=== PATIENT | female | born 1980 | race Caucasian/White ===

== ENCOUNTER 2017-06-19 13:30 | Emergency (ER) | payer BC ==
[2017-06-19] MEDS ORDERED: Sulfamethoxazole/Trimethoprim 800-160 MG Tab PO ONE (13:31)
[2017-06-19 13:37] VITALS: BP 146/63
--- NOTE | 2017-06-19 13:47 | EDM.PDOC ---
ED HPI GENERAL MEDICAL PROBLEM - General Chief Complaint: Abdominal Pain Stated Complaint: abdominal pain Time Seen by Provider: 06/19/17 13:45 Source of Information: Reports: Patient History Limitations: Reports: No Limitations - History of Present Illness INITIAL COMMENTS - FREE TEXT/NARRATIVE: Patient presents with about a 18 hour history of left lower quadrant and suprapubic pain. Patient states initially thought maybe she was getting the flu as she was nauseated as well. No vomiting or diarrhea developed. No fevers. Patient states the pain has persisted and seems worsening. She was at work and couldn't tolerate the pain anymore. She denies burning with urination , no blood. States had a BM yesterday, normal without blood. She has not had any URI symptoms. Last LMP was 2 weeks ago. History of remote ovarian cyst but states this "feels different than that did". Onset: Gradual Duration: Hour(s): Location: Reports: Abdomen Quality: Reports: Burning, Sharp Severity: Moderate Improves with: Reports: None Associated Symptoms: Reports: Nausea/Vomiting. Denies: Cough, cough w sputum, Fever/Chills, Headaches, Loss of Appetite, Shortness of Breath Abdominal Pain Score (Numeric/FACES): 7 - Related Data Allergies Allergy/AdvReac Type Severity Reaction Status Date / Time celecoxib [From Celebrex] Allergy Rash Verified 06/19/17 13:46 Home Meds: Home Meds Metoprolol Succinate [Toprol XL] 12.5 mg PO DAILY 05/26/14 [History] Calcium Carbonate/Vitamin D3 [Calcium 600 + Vit D Tablet] 1 each PO DAILY [History] Levothyroxine Sodium [Synthroid] 125 mcg PO DAILY 05/31/14 [History] Loratadine [Claritin] 10 mg PO DAILY PRN 05/31/14 [History] Naproxen Sodium [Aleve] 220 mg PO BID PRN 05/31/14 [History] diphenhydrAMINE HCl [Allergy Relief] 12.5 mg PO DAILY PRN 05/31/14 [History] Norgestimate-Ethinyl Estradiol [Bath-Linyah 28 Tablet] 1 each PO ASDIRECTED 11/29 [History] Omeprazole Magnesium 40 mg PO DAILY 06/19/17 [History] Rosuvastatin [Crestor] 10 mg PO BEDTIME 06/19/17 [History] Past Medical History Gastrointestinal History: Reports: Diverticulosis, GERD Endocrine/Metabolic History: Reports: Hyperthyroidism Social & Family History - Tobacco Use Smoking Status *Q: Never Smoker Second Hand Smoke Exposure: No - Alcohol Use Days Per Week of Alcohol Use: 1 Number of Drinks Per Day: 1 Total Drinks Per Week: 1 - Recreational Drug Use Recreational Drug Use: No ED ROS GENERAL - Review of Systems Review Of Systems: See Below Constitutional: Denies: Fever, Chills, Malaise, Weakness, Decreased Appetite HEENT: Reports: No Symptoms Respiratory: Denies: Shortness of Breath, Cough Cardiovascular: Denies: Chest Pain, Edema, Lightheadedness Endocrine: Denies: Fatigue GI/Abdominal: Reports: Abdominal Pain, Nausea. Denies: Black Stool, Bloody Stool, Constipation, Diarrhea, Vomiting : Reports: Flank Pain Musculoskeletal: Reports: No Symptoms Skin: Reports: No Symptoms Neurological: Reports: No Symptoms Psychiatric: Reports: No Symptoms ED EXAM, GI/ABD - Physical Exam Exam: See Below Exam Limited By: No Limitations General Appearance: Alert, WD/WN, No Apparent Distress Ears: Normal External Exam, Normal TMs Nose: Normal Inspection, Normal Mucosa Throat/Mouth: Normal Inspection, Normal Oropharynx Head: Normocephalic Neck: Normal Inspection, Supple, Non-Tender Respiratory/Chest: No Respiratory Distress, Lungs Clear, Normal Breath Sounds Cardiovascular: Regular Rate, Rhythm GI/Abdominal Exam: Normal Bowel Sounds, Soft, Tender (diffusely throughout with palpation) Extremities: Normal Inspection, Normal Capillary Refill Neurological: Alert, Oriented Skin Exam: Warm, Dry Course - Vital Signs Last Recorded V/S: Last Vital Signs Temp 97.8 F 06/19/17 13:32 Pulse 84 06/19/17 13:32 Resp 16 06/19/17 13:32 BP 146/63 H 06/19/17 13:32 Pulse Ox 99 06/19/17 13:32 - Orders/Labs/Meds Orders: Active Orders 24 hr Category Date Time Status Abdomen 2V AP Flat Upright [CR] Stat Exams 06/19/17 13:37 Ordered Labs: Laboratory Tests 06/19/17 06/19/17 06/19/17 Range/Units 13:50 13:50 13:50 WBC 9.5 (5.0-10.0) 10^3/uL RBC 4.66 (4.00-5.50) 10^6/uL Hgb 13.0 (12.0-16.0) g/dL Hct 39.1 (37.0-47.0) % MCV 83.9 (82.0-94.0) fL MCH 27.9 (27.0-32.0) pg MCHC 33.2 (33.0-38.0) g/dL RDW Coeff of Be 12.9 (11.0-15.0) % Plt Count 415 H (150-400) 10^3/uL Neut % (Auto) 59.9 (35-85) % Lymph % (Auto) 33.1 (10-55) % Bath % (Auto) 6.0 (0-16) % Eos % (Auto) 0.7 (0-5) % Baso % (Auto) 0.3 (0-3) % Neut # (Auto) 5.69 (1.80-7.00) 10^3/uL Lymph # (Auto) 3.15 (1.00-4.80) 10^3/uL Bath # (Auto) 0.57 (0.00-0.80) 10^3/uL Eos # (Auto) 0.07 (0.00-0.45) 10^3/uL Baso # (Auto) 0.03 10^3/uL Sodium 141 (136-145) mEq/L Potassium 3.8 (3.5-5.0) mEq/L Chloride 103 (98-106) mEq/L Carbon Dioxide 26 (21-32) mmol/L BUN 15 (7-18) mg/dL Creatinine 0.8 (0.6-1.0) mg/dL Est Cr Clr Drug Dosing 82.33 mL/min Estimated GFR (MDRD) > 60 (>=60) mL/min Glucose 103 H (75-99) mg/dL Calcium 9.1 (8.4-10.1) mg/dL Total Bilirubin 0.2 (0.0-1.0) mg/dL AST 11 L (15-37) U/L ALT 15 (12-78) U/L Alkaline Phosphatase 84 (46-116) U/L C-Reactive Protein 2.7 H (0.2-0.8) mg/dL Total Protein 7.2 (6.4-8.2) g/dL Albumin 3.3 L (3.4-5.0) g/dL Amylase 49 (25-115) U/L Urine Color (YELLOW) Urine Appearance (CLEAR) Urine pH (4.5-8.0) Ur Specific Banks (1.003-1.020) Urine Protein (NEGATIVE) mg/dL Urine Glucose (UA) (NEGATIVE) mg/dL Urine Ketones (NEGATIVE) mg/dL Urine Occult Blood (NEGATIVE) Urine Nitrite (NEGATIVE) Urine Bilirubin (NEGATIVE) Urine Urobilinogen (0.2-1.0) EU/dL Ur Leukocyte Esterase (NEGATIVE) Urine RBC (0-5) /HPF Urine WBC (0-5) /HPF Ur Squamous Epith Cells (NOT SEEN) /HPF Urine Bacteria (NOT SEEN) /HPF Urine HCG, Qual Negative 06/19/17 Range/Units 13:50 WBC (5.0-10.0) 10^3/uL RBC (4.00-5.50) 10^6/uL Hgb (12.0-16.0) g/dL Hct (37.0-47.0) % MCV (82.0-94.0) fL MCH (27.0-32.0) pg MCHC (33.0-38.0) g/dL RDW Coeff of Be (11.0-15.0) % Plt Count (150-400) 10^3/uL Neut % (Auto) (35-85) % Lymph % (Auto) (10-55) % Bath % (Auto) (0-16) % Eos % (Auto) (0-5) % Baso % (Auto) (0-3) % Neut # (Auto) (1.80-7.00) 10^3/uL Lymph # (Auto) (1.00-4.80) 10^3/uL Bath # (Auto) (0.00-0.80) 10^3/uL Eos # (Auto) (0.00-0.45) 10^3/uL Baso # (Auto) 10^3/uL Sodium (136-145) mEq/L Potassium (3.5-5.0) mEq/L Chloride (98-106) mEq/L Carbon Dioxide (21-32) mmol/L BUN (7-18) mg/dL Creatinine (0.6-1.0) mg/dL Est Cr Clr Drug Dosing mL/min Estimated GFR (MDRD) (>=60) mL/min Glucose (75-99) mg/dL Calcium (8.4-10.1) mg/dL Total Bilirubin (0.0-1.0) mg/dL AST (15-37) U/L ALT (12-78) U/L Alkaline Phosphatase (46-116) U/L C-Reactive Protein (0.2-0.8) mg/dL Total Protein (6.4-8.2) g/dL Albumin (3.4-5.0) g/dL Amylase (25-115) U/L Urine Color Yellow (YELLOW) Urine Appearance Clear (CLEAR) Urine pH 5.0 (4.5-8.0) Ur Specific Banks >= 1.030 H (1.003-1.020) Urine Protein Negative (NEGATIVE) mg/dL Urine Glucose (UA) Negative (NEGATIVE) mg/dL Urine Ketones Negative (NEGATIVE) mg/dL Urine Occult Blood Negative (NEGATIVE) Urine Nitrite Negative (NEGATIVE) Urine Bilirubin Negative (NEGATIVE) Urine Urobilinogen 0.2 (0.2-1.0) EU/dL Ur Leukocyte Esterase Trace H (NEGATIVE) Urine RBC 0-5 (0-5) /HPF Urine WBC 0-5 (0-5) /HPF Ur Squamous Epith Cells Few H (NOT SEEN) /HPF Urine Bacteria Moderate H (NOT SEEN) /HPF Urine HCG, Qual Meds: Medications Discontinued Medications Generic Name Dose Route Start Last Admin Trade Name Freq PRN Reason Stop Dose Admin Trimethoprim/Sulfamethoxazole 2 packet 06/19/17 14:27 Take Home: Sulfameth/Trimet 800-160mg, 2 Pack PO 06/19/17 14:28 ONETIME ONE - Re-Assessments/Exams Free Text/Narrative Re-Assessment/Exam: 06/19/17 14:00 Lab and xray reviewed with patient. Does have bacteruria and a large amount of stool in her large colon. Encouraged to use a laxative today, start Bactrim and push fluids. Departure - Departure Time of Disposition: 14:24 Disposition: Home, Self-Care 01 Condition: Fair Clinical Impression: Constipation, UTI (urinary tract infection) - Discharge Information Forms: ED Department Discharge Additional Instructions: 1. Push fluids 2. Dulcolax tabs 1-2 per day until constipation resolved 3. Bactrim DS 1 tab BID twice a day for 7 days 4. Follow up if any ongoing concerns. - My Orders Last 24 Hours: My Active Orders 06/19/17 13:37 Abdomen 2V AP Flat Upright [CR] Stat - Assessment/Plan Last 24 Hours: My Active Orders 06/19/17 13:37 Abdomen 2V AP Flat Upright [CR] Stat
[2017-06-19 14:08] LABS: CHLORIDE,CL 103 mEq/L (98-106); SODIUM,NA 141 mEq/L (136-145)
[2017-06-19] MEDS ORDERED: Take Home: Sulfamethoxazole/Trimethoprim 800-160 MG Tab, 2 Tab Pack PO ONE (14:27)
== END 2017-06-19 14:40 | disposition home or self-care (01) ==
LOC: CC.ED 13:30
DX: N39.0 Urinary tract infection, site not specified (principal); K59.00 Constipation, unspecified; K21.9 Gastro-esophageal reflux disease without esophagitis; E05.90 Thyrotoxicosis, unspecified without thyrotoxic crisis or storm; Z88.8 Allergy status to other drugs, medicaments and biological substances; Z79.899 Other long term (current) drug therapy
CPT/HCPCS: 36415; 74019; 80053; 81001; 81025; 82150; 85025; 86140; 99284; A9270

== ENCOUNTER 2022-08-09 06:10 | Emergency (ER) | payer BC ==
[2022-08-09 06:33] VITALS: BP 115/76; PULSE 85
[2022-08-09] MEDS: Take Home: Cephalexin 500 MG Cap, 6 Cap Pack PO ONE (06:47)
== END 2022-08-09 06:59 | disposition home or self-care (01) ==
LOC: CC.ED 06:10
DX: L03.213 Periorbital cellulitis (principal); I10 Essential (primary) hypertension; K21.9 Gastro-esophageal reflux disease without esophagitis; E78.00 Pure hypercholesterolemia, unspecified; E05.90 Thyrotoxicosis, unspecified without thyrotoxic crisis or storm; Z88.6 Allergy status to analgesic agent; Z79.899 Other long term (current) drug therapy
CPT/HCPCS: 99283; A9270-GY

== ENCOUNTER 2024-01-25 12:10 | Emergency (ER) | payer BC, OTHER ==
[2024-01-25 12:58] LABS: APPEARANCE,URINE CLEAR (CLEAR); BILIRUBIN,URINE NEGATIVE (NEGATIVE); COLOR,URINE YELLOW (YELLOW); GLUCOSE,URINE NEGATIVE (NEGATIVE); KETONES,URINE NEGATIVE (NEGATIVE); LEUKOCYTE ESTERASE,URINE NEGATIVE (NEGATIVE); NITRITE,URINE NEGATIVE (NEGATIVE); OCCULT BLOOD,URINE NEGATIVE (NEGATIVE); PH,URINE 6.5 (4.5-8.0); PROTEIN,URINE NEGATIVE (NEGATIVE); UROBILINOGEN,URINE 0.2 EU/dL (0.2-1.0)
[2024-01-25 15:23] VITALS: BP 129/67; PULSE 66
[2024-01-25] MEDS: Acetaminophen/HYDROcodone 325-5 MG Tab PO ONE (15:24)
[2024-01-25] MEDS: Cyclobenzaprine 10 MG Tab PO ONE (15:24)
== END 2024-01-25 13:35 | disposition home or self-care (01) ==
LOC: CC.ED 12:10
DX: S20.213A Contusion of bilateral front wall of thorax, initial encounter (principal); I10 Essential (primary) hypertension; K21.9 Gastro-esophageal reflux disease without esophagitis; E78.00 Pure hypercholesterolemia, unspecified; Z88.8 Allergy status to other drugs, medicaments and biological substances; Z79.890 Hormone replacement therapy; Z79.899 Other long term (current) drug therapy
CPT/HCPCS: 71111; 81003; 99283

== ENCOUNTER 2024-03-28 21:25 | Emergency (ER) | payer BC ==
[2024-03-28 21:33] VITALS: BP 124/81; PULSE 73
[2024-03-28] MEDS: LORazepam 0.5 MG Tab PO ONE (21:54)
[2024-03-28 22:11] LABS: BASOPHILS ABSOLUTE AUTO 0.03 10^3/uL (0.00-0.50); BASOPHILS PERCENT AUTO 0.3 % (0-1); EOSINOPHILS ABSOLUTE AUTO 0.05 10^3/uL (0.00-1.50); EOSINOPHILS PERCENT AUTO 0.5 % (0-6); HEMATOCRIT 41.2 % (37.0-47.0); HEMOGLOBIN 13.7 g/dL (12.0-16.0); IMMATURE GRAN ABSOLUTE AUTO 0.02 10^3/uL (0.00-0.49); IMMATURE GRAN PERCENT AUTO 0.2 % (0.0-4.9); LYMPHOCYTES ABSOLUTE AUTO 2.73 10^3/uL (0.60-5.00); LYMPHOCYTES PERCENT AUTO 27.3 % (24-44); MEAN CORPUSCULAR HEMOGLOBIN 28.5 pg (27.0-32.0); MEAN CORPUSCULAR HGB CONC 33.3 g/dL (32.0-36.0); MEAN CORPUSCULAR VOLUME 85.7 fL (83.0-97.0); MONOCYTES ABSOLUTE AUTO 0.68 10^3/uL (0.00-1.50); MONOCYTES PERCENT AUTO 6.8 % (0-10); NEUTROPHILS ABSOLUTE AUTO 6.48 x10^3/uL (1.80-8.00); NEUTROPHILS PERCENT AUTO 64.9 % (41-71); PLATELET COUNT,PLT 334 10^3/uL (150-400); RED BLOOD CELL COUNT 4.81 x10^6/uL (4.00-5.50)
[2024-03-28 22:25] LABS: ALANINE AMINOTRANSFERASE,ALT 19 U/L (12-78); ALBUMIN 3.6 g/dL (3.4-5.0); ALKALINE PHOSPHATASE 87 U/L (46-116); ASPARTATE AMNIOTRANSFERASE,AST 14 U/L (15-37); BILIRUBIN TOTAL 0.4 mg/dL (0.0-1.0); BLOOD UREA NITROGEN,BUN 11 mg/dL (7-18); CARBON DIOXIDE,CO2 27 mmol/L (21-32); CHLORIDE,CL 105 mEq/L (98-106); CREATININE 0.8 mg/dL (0.6-1.0); EST CRCL DRUG DOSING (CG) 77.49 mL/min; GLUCOSE RANDOM 149 mg/dL (75-99); MAGNESIUM 1.8 mg/dL (1.8-2.4); POTASSIUM,K 3.2 mEq/L (3.5-5.0); PROTEIN TOTAL,TP 7.1 g/dL (6.4-8.2); SODIUM,NA 142 mEq/L (136-145)
[2024-03-28 22:26] LABS: C-REACTIVE PROTEIN < 0.50 mg/dL (<=0.50); ESTIMATED GFR 93 mL/min (>=60)
[2024-03-28] MEDS: Potassium Chloride 20 MEQ Tab.ER PO ONE (22:38)
== END 2024-03-28 22:50 | disposition home or self-care (01) ==
LOC: CC.ED 21:25
DX: F41.0 Panic disorder [episodic paroxysmal anxiety] (principal); F41.9 Anxiety disorder, unspecified; R07.9 Chest pain, unspecified; E78.00 Pure hypercholesterolemia, unspecified; I10 Essential (primary) hypertension; K21.9 Gastro-esophageal reflux disease without esophagitis; E03.9 Hypothyroidism, unspecified; Z79.899 Other long term (current) drug therapy; Z88.6 Allergy status to analgesic agent
CPT/HCPCS: 36415; 71045; 80053; 83735; 84484; 85025; 86140; 93005; 93010; 99284; 99285; A9270-GY

== ENCOUNTER 2025-02-03 12:54 | Emergency (ER) | payer BC ==
[2025-02-03 13:08] LABS: BASOPHILS ABSOLUTE AUTO 0.04 10^3/uL (0.00-0.50); BASOPHILS PERCENT AUTO 0.5 % (0-1); EOSINOPHILS ABSOLUTE AUTO 0.03 10^3/uL (0.00-1.50); EOSINOPHILS PERCENT AUTO 0.4 % (0-6); IMMATURE GRAN ABSOLUTE AUTO 0.01 10^3/uL (0.00-0.49); IMMATURE GRAN PERCENT AUTO 0.1 % (0.0-4.9); LYMPHOCYTES ABSOLUTE AUTO 2.04 10^3/uL (0.60-5.00); LYMPHOCYTES PERCENT AUTO 24.6 % (24-44); MONOCYTES ABSOLUTE AUTO 0.50 10^3/uL (0.00-1.50); MONOCYTES PERCENT AUTO 6.0 % (0-10); NEUTROPHILS ABSOLUTE AUTO 5.68 x10^3/uL (1.80-8.00); NEUTROPHILS PERCENT AUTO 68.4 % (41-71); PLATELET COUNT,PLT 325 10^3/uL (150-400); RED BLOOD CELL COUNT 5.20 x10^6/uL (4.00-5.50); WHITE BLOOD CELL COUNT,WBC 8.3 10^3/uL (4.0-11.0)
[2025-02-03 13:22] LABS: ALANINE AMINOTRANSFERASE,ALT 21 U/L (12-78); ASPARTATE AMNIOTRANSFERASE,AST 13 U/L (15-37); BILIRUBIN TOTAL 0.4 mg/dL (0.0-1.0); BLOOD UREA NITROGEN,BUN 11 mg/dL (7-18); CARBON DIOXIDE,CO2 26 mmol/L (21-32); CHLORIDE,CL 104 mEq/L (98-106); CREATININE 0.9 mg/dL (0.6-1.0); GLUCOSE RANDOM 87 mg/dL (75-99); POTASSIUM,K 3.5 mEq/L (3.5-5.0); PROTEIN TOTAL,TP 7.0 g/dL (6.4-8.2); SODIUM,NA 139 mEq/L (136-145)
[2025-02-03 13:24] LABS: ESTIMATED GFR 80 mL/min (>=60)
[2025-02-03 13:25] LABS: APPEARANCE,URINE CLEAR (CLEAR); GLUCOSE,URINE NEGATIVE (NEGATIVE); OCCULT BLOOD,URINE NEGATIVE (NEGATIVE)
[2025-02-03] MEDS: Iopamidol 755 Mg/ML 100 ML Bottle IVPUSH ONE (14:02)
[2025-02-03 14:23] VITALS: BP 129/77; PULSE 72
== END 2025-02-03 15:50 | disposition home or self-care (01) ==
LOC: CC.ED 12:54
DX: R10.9 Unspecified abdominal pain (principal); I10 Essential (primary) hypertension; K21.9 Gastro-esophageal reflux disease without esophagitis; E78.00 Pure hypercholesterolemia, unspecified; E03.9 Hypothyroidism, unspecified; Z88.8 Allergy status to other drugs, medicaments and biological substances; Z79.899 Other long term (current) drug therapy; Z79.890 Hormone replacement therapy
CPT/HCPCS: 36415; 74177; 80053; 81003; 83690; 85025; 86140; 99284; Q9967

== ENCOUNTER 2025-05-01 07:44 | Day surgery (SDC) | payer BC ==
[2025-05-01] MEDS: Lactated Ringers 1,000 ML IV SCH (08:00)
[2025-05-01] MEDS ORDERED: Ketamine 200 MG/20 ML MDV ONE (08:47)
[2025-05-01] MEDS ORDERED: fentaNYL 50 MCG/ML SDV ONE (08:47)
[2025-05-01] MEDS ORDERED: Midazolam 1 MG/ML 2 ML SDV ONE (08:47)
[2025-05-01] MEDS ORDERED: Propofol 200 MG/20 ML SDV ONE (08:47)
[2025-05-01 10:16] VITALS: BP 109/73; PULSE 70
== END 2025-05-01 10:25 | disposition home or self-care (01) ==
LOC: CC.SDS 07:44
PROVIDERS: ATTEND Family Medicine
DX: K57.30 Diverticulosis of large intestine without perforation or abscess without bleeding (principal); K63.89 Other specified diseases of intestine; K29.50 Unspecified chronic gastritis without bleeding; I10 Essential (primary) hypertension; E78.5 Hyperlipidemia, unspecified; K21.9 Gastro-esophageal reflux disease without esophagitis; E07.9 Disorder of thyroid, unspecified; Z88.8 Allergy status to other drugs, medicaments and biological substances; Z79.890 Hormone replacement therapy; Z79.899 Other long term (current) drug therapy
CPT/HCPCS: 00813; 81025; 87077; J2003; J2250; J2704; J3010; J3490; J7120

== ENCOUNTER 2025-05-16 20:55 | Emergency (ER) | payer BC ==
[2025-05-16] MEDS: Orphenadrine 60 MG/2 ML Inj IM ONE (21:23)
[2025-05-16] MEDS: Take Home: Cyclobenzaprine 10 MG Tab, 4 Tab Pack PO ONE (22:12)
[2025-05-16 22:23] VITALS: BP 109/73; PULSE 83
== END 2025-05-16 22:50 | disposition home or self-care (01) ==
LOC: CC.ED 20:55
DX: S33.5XXA Sprain of ligaments of lumbar spine, initial encounter (principal); S70.11XA Contusion of right thigh, initial encounter; I10 Essential (primary) hypertension; E78.00 Pure hypercholesterolemia, unspecified; K21.9 Gastro-esophageal reflux disease without esophagitis; Z88.8 Allergy status to other drugs, medicaments and biological substances; Z79.890 Hormone replacement therapy; Z79.899 Other long term (current) drug therapy; Z79.4 Long term (current) use of insulin; W18.39XA Other fall on same level, initial encounter; Y93.89 Activity, other specified
CPT/HCPCS: 72100; 96372; 99283; A9270-GY; J2360